=== PATIENT | male | born 1990 | race Caucasian/White ===

== ENCOUNTER 2017-01-07 17:33 | Emergency (ER) | payer SELFPAY ==
[~2017-01-07] VITALS: Ht 175.3 cm; Wt 77.1 kg
[2017-01-07 17:59] VITALS: BP_SYST 122
[2017-01-07 22:45] VITALS: BP_SYST 122
== END 2017-01-07 22:45 | disposition home or self-care (01) ==
LOC: SED 17:33
DX: S93.401A Sprain of unspecified ligament of right ankle, initial encounter (principal); X58.XXXA Exposure to other specified factors, initial encounter; Y93.44 Activity, trampolining; Y92.89 Other specified places as the place of occurrence of the external cause; Y99.8 Other external cause status
CPT/HCPCS: 99284